=== PATIENT | female | born 1970 | race Caucasian/White ===

== ENCOUNTER 2018-02-10 09:40 | Outpatient (CLI) | payer OTHER | END 2018-02-10 09:46 | disposition home or self-care (01) | LOC: SONOGRAMA 09:40 | DX: R10.84 Generalized abdominal pain (principal); D21.4 Benign neoplasm of connective and other soft tissue of abdomen ==

== ENCOUNTER 2018-02-24 08:25 | Outpatient (CLI) | payer OTHER | END 2018-02-24 08:30 | disposition home or self-care (01) | LOC: SONOGRAMA 08:25 | DX: D21.4 Benign neoplasm of connective and other soft tissue of abdomen (principal) ==